=== PATIENT | female | born 1990 | race Caucasian/White ===

== ENCOUNTER 2016-06-10 08:36 | Emergency (ER) | payer OTHER ==
[2016-06-10 08:50] VITALS: O2SAT 100
[2016-06-10] MEDS ORDERED: Sodium Chloride 0.9% 1000 ML 1,000 ML IV STA ×2 (09:04→10:32)
[2016-06-10] MEDS ORDERED: Zofran 4 MG/2 ML VIAL IV ONE (09:04)
[2016-06-10] MEDS ORDERED: PROTONIX 40 MG IV IV ONE ×2 (09:04→09:10)
[2016-06-10] MEDS ORDERED: Zofran 4 MG/2 ML VIAL ONE (09:10)
[2016-06-10] MEDS ORDERED: Sodium Chloride 0.9% 1000 ML 1,000 ML ONE ×2 (09:10→10:34)
[2016-06-10 09:13] LABS: Collection Type CCMS
[2016-06-10 09:14] LABS: COMPLETE URINE MICROSCOPIC? YES; Ph 5.5 (5-6)
--- NOTE | 2016-06-10 09:14 | ERPHSYRPT ---
- History of Present Illness Time Seen by Provider: 06/10/16 09:00 Historian: patient Exam Limitations: clinical condition Patient Subjective Stated Complaint: pt states she had bariatric surgery in april and began having vomiting this morning. pt now c/o weakness and thinks she maybe dehydrated. pt states she also has had diarrhea. Triage Nursing Assessment: pt pale, warm, dry. pt ambulated into ER without difficulty. lips dry, mouth moist. pt afebrile. Physician History: PATIENT POST GASTRIC BYPASS SURGERY 2 MONTHS AGO COMPLAINS OF FREQUENT EMESIS X 4 EPISODES TODAY AND WATERY DIARRHEA AFTER TAKING A STOOL SOFTNER FOR CONSTIPATION. DENIES ABDOMINAL PAIN OR FEVER. HAS WEAKNESS UPON STANDING. Timing/Duration: today Activities at Onset: none Quality: other (DENIES PAIN DISCOMFORT) Severity of Pain-Max: none Severity of Pain-Current: none Modifying Factors: Improves With: vomiting, other (DIARRHEA) Previous symptoms: no prior history Allergies/Adverse Reactions: No Known Drug Allergies Allergy (Unverified 06/10/16 08:48) Home Medications: Calcium Carbonate/Vitamin D3 [Vitamin D-3 400 Units Tablet] 1 tab PO DAILY 06/10 [History] Calcium Citrate/Glut AC HCl [Calcium Citrate Tablet] 1 each PO DAILY 06/10/16 [ History] Sucralfate 1 gm [Carafate 1 GM] 1 g PO BID 06/10/16 [History] Hx Tetanus, Diphtheria Vaccination/Date Given: Yes (up to date) Hx Influenza Vaccination/Date Given: No Hx Pneumococcal Vaccination/Date Given: No Immunizations Up to Date: Yes - Review of Systems Constitutional: No Fever, No Chills Eyes: No Symptoms Ears, Nose, & Throat: No Symptoms Respiratory: No Symptoms, No Cough, No Dyspnea Cardiac: No Symptoms, No Chest Pain, No Edema, No Syncope Abdominal/Gastrointestinal: No Abdominal Pain, No Nausea, No Vomiting, No Diarrhea Genitourinary Symptoms: No Dysuria Musculoskeletal: No Back Pain, No Neck Pain Skin: No Rash Neurological: No Dizziness, No Focal Weakness, No Sensory Changes Psychological: No Symptoms Endocrine: No Symptoms All Other Systems: Reviewed and Negative - Past Medical History Pertinent Past Medical History: Yes Other Medical History: bariatric surgery - Past Surgical History Past Surgical History: Yes Other Surgical History: bariatric surgery Apr 2016 - Social History Smoking Status: Never smoker Exposure to second hand smoke: No Drug Use: none Patient Lives Alone: No - Female History Hx Last Menstrual Period: jan 2016-normal - Nursing Vital Signs Nursing Vital Signs: Initial Vital Signs Temperature 98.0 F Temperature Source Oral Pulse Rate 66 Respiratory Rate 18 Blood Pressure [Right Arm] 107/67 Pain Intensity 4 - Physical Exam General Appearance: no apparent distress, alert Eye Exam: PERRL/EOMI, eyes nml inspection Ears, Nose, Throat Exam: normal ENT inspection, pharynx normal, moist mucous membranes Neck Exam: normal inspection, non-tender, supple, full range of motion Respiratory Exam: normal breath sounds, lungs clear, No respiratory distress Cardiovascular Exam: regular rate/rhythm, normal heart sounds Gastrointestinal/Abdomen Exam: soft, normal bowel sounds, other (OBESE, NONTENDER), No tenderness, No mass Back Exam: normal inspection, normal range of motion, No CVA tenderness, No vertebral tenderness Extremity Exam: normal inspection, normal range of motion, pelvis stable Neurologic Exam: alert, oriented x 3, cooperative, normal mood/affect, nml cerebellar function, sensation nml, No motor deficits Skin Exam: normal color, warm, dry SpO2 Interpretation: normal SpO2: 100 Oxygen Delivery: Room Air - Radiology Exams Abdomen X-ray Interpretation: Negative (NO EVIDENCE OF BOWEL OBSTRUCTION OR FREE AIR) Ordered Tests: Active Orders 24 hr Category Date Time Status IV Insertion STAT Care 06/10/16 09:04 Active Orthostatic Vital Signs STAT Care 06/10/16 09:04 Active OBSTR/ACUTE ABDOMEN SERIES Stat Exams 06/10/16 09:04 Taken AMYLASE Stat Lab 06/10/16 09:00 Completed CBC W DIFF Stat Lab 06/10/16 09:09 Completed CMP Stat Lab 06/10/16 09:00 Completed HCG,QUALITATIVE URINE Stat Lab 06/10/16 09:00 Completed LIPASE Stat Lab 06/10/16 09:00 Completed MAGNESIUM Stat Lab 06/10/16 09:00 Completed UA W/ MICROSCOPIC Stat Lab 06/10/16 09:00 Completed Medication Summary Discontinued Medications Generic Name Dose Route Start Last Admin Trade Name Freq PRN Reason Stop Dose Admin Acetaminophen 650 mg 06/10/16 10:33 06/10/16 10:34 Tylenol 325 Mg PO 06/10/16 10:34 650 mg STAT STA Administration Acetaminophen Confirm 06/10/16 10:34 Tylenol 325 Mg Administered 06/10/16 10:35 Dose 650 mg .ROUTE .STK-MED ONE Sodium Chloride 1,000 mls @ 999 mls/hr 06/10/16 09:04 06/10/16 09:18 Sodium Chloride 0.9% 1000 Ml IV 06/10/16 10:04 999 mls/hr .Q1H1M STA Administration Sodium Chloride Confirm 06/10/16 09:10 Sodium Chloride 0.9% 1000 Ml Administered 06/10/16 09:11 Dose 1,000 mls @ ud .ROUTE .STK-MED ONE Sodium Chloride 1,000 mls @ 999 mls/hr 06/10/16 10:32 06/10/16 10:34 Sodium Chloride 0.9% 1000 Ml IV 06/10/16 11:32 999 mls/hr .Q1H1M STA Administration Sodium Chloride Confirm 06/10/16 10:34 Sodium Chloride 0.9% 1000 Ml Administered 06/10/16 10:35 Dose 1,000 mls @ ud .ROUTE .STK-MED ONE Ondansetron HCl 4 mg 06/10/16 09:04 06/10/16 09:18 Zofran 4 Mg/2 Ml Vial IV 06/10/16 09:05 4 mg STAT ONE Administration Ondansetron HCl Confirm 06/10/16 09:10 Zofran 4 Mg/2 Ml Vial Administered 06/10/16 09:11 Dose 4 mg .ROUTE .STK-MED ONE Pantoprazole Sodium 40 mg 06/10/16 09:04 06/10/16 09:18 Protonix 40 Mg Iv IV 06/10/16 09:05 40 mg STAT ONE Administration Pantoprazole Sodium Confirm 06/10/16 09:10 Protonix 40 Mg Iv Administered 06/10/16 09:11 Dose 40 mg IV .STK-MED ONE Lab/Rad Data: Laboratory Result Diagrams 06/10/16 09:09 06/10/16 09:00 Laboratory Results 06/10/16 06/10/16 06/10/16 Range/Units 09:09 09:00 09:00 WBC 5.3 (4.0-10.5) K/mm3 RBC 5.21 (4.1-5.4) M/mm3 Hgb 12.5 (12.0-16.0) gm/dl Hct 40.7 (35-47) % MCV 78.1 (78-100) fl MCH 24.0 L (26-32) pg MCHC 30.7 L (32-36) g/dl RDW 16.6 H (11.5-14.0) % Plt Count 184 (150-450) K/mm3 MPV 11.1 H (6-9.5) fl Gran % 61.2 (36.0-66.0) % Lymphocytes % 29.6 (24.0-44.0) % Monocytes % 7.9 (0.0-12.0) % Eosinophils % 1.1 (0.00-5.0) % Basophils % 0.2 (0.0-0.4) % Basophils # 0.01 (0-0.4) Sodium (136-145) mEq/L Potassium (3.5-5.1) mEq/L Chloride (98-107) mEq/L Carbon Dioxide (21-32) mEq/L Anion Gap (5-15) MEQ/L BUN (9-20) mg/dL Creatinine (0.55-1.30) mg/dl Estimated GFR ML/MIN Glucose (70-110) MG/DL Calcium (8.5-10.1) mg/dL Magnesium 2.2 (1.8-2.4) mg/dL Total Bilirubin (0.2-1.0) mg/dL AST (15-37) U/L ALT (12-78) U/L Alkaline Phosphatase (46-116) U/L Serum Total Protein (6.4-8.2) gm/dL Albumin (3.4-5.0) g/dL Amylase (25-115) U/L Lipase (73-393) U/L Ur Collection Type Urine Color (YELLOW) Urine Appearance (CLEAR) Urine pH (5-6) Ur Specific [place] (1.005-1.025) Urine Protein (Negative) Urine Glucose (UA) (NEGATIVE) mg/dL Urine Ketones (NEGATIVE) Urine Nitrite (NEGATIVE) Urine Bilirubin (NEGATIVE) Urine Urobilinogen (0-1) mg/dL Urine WBC (Auto) (NEGATIVE) Urine RBC (Auto) (0-5) Danilo/ul Ur Epithelial Cells (FEW) /HPF Urine Bacteria (NEGATIVE) /HPF Urine Mucus (NEGATIVE) /HPF Urine HCG, Qual NEGATIVE (Negative) Specimen Received 06/10/16 06/10/16 Range/Units 09:00 09:00 WBC (4.0-10.5) K/mm3 RBC (4.1-5.4) M/mm3 Hgb (12.0-16.0) gm/dl Hct (35-47) % MCV (78-100) fl MCH (26-32) pg MCHC (32-36) g/dl RDW (11.5-14.0) % Plt Count (150-450) K/mm3 MPV (6-9.5) fl Gran % (36.0-66.0) % Lymphocytes % (24.0-44.0) % Monocytes % (0.0-12.0) % Eosinophils % (0.00-5.0) % Basophils % (0.0-0.4) % Basophils # (0-0.4) Sodium 127 L (136-145) mEq/L Potassium 4.2 (3.5-5.1) mEq/L Chloride 104 (98-107) mEq/L Carbon Dioxide 20.8 L (21-32) mEq/L Anion Gap 6.8 (5-15) MEQ/L BUN 18 (9-20) mg/dL Creatinine 0.74 (0.55-1.30) mg/dl Estimated GFR > 60 ML/MIN Glucose 116 H (70-110) MG/DL Calcium 9.2 (8.5-10.1) mg/dL Magnesium (1.8-2.4) mg/dL Total Bilirubin 0.9 (0.2-1.0) mg/dL AST 26 (15-37) U/L ALT 40 (12-78) U/L Alkaline Phosphatase 71 (46-116) U/L Serum Total Protein 7.4 (6.4-8.2) gm/dL Albumin 3.8 (3.4-5.0) g/dL Amylase 49 (25-115) U/L Lipase 155 (73-393) U/L Ur Collection Type CCMS Urine Color YELLOW (YELLOW) Urine Appearance CLOUDY (CLEAR) Urine pH 5.5 (5-6) Ur Specific [place] >=1.030 (1.005-1.025) Urine Protein 30 (Negative) Urine Glucose (UA) NEGATIVE (NEGATIVE) mg/dL Urine Ketones LARGE-80 (NEGATIVE) Urine Nitrite NEGATIVE (NEGATIVE) Urine Bilirubin SMALL (NEGATIVE) Urine Urobilinogen 0.2 (0-1) mg/dL Urine WBC (Auto) NEGATIVE (NEGATIVE) Urine RBC (Auto) NEGATIVE (0-5) Danilo/ul Ur Epithelial Cells MODERATE (FEW) /HPF Urine Bacteria FEW (NEGATIVE) /HPF Urine Mucus MANY (NEGATIVE) /HPF Urine HCG, Qual (Negative) Specimen Received 0900 06/10/16 - Progress Progress: improved Progress Note: 06/10/16 09:24 PATIENT GIVEN IV FLUIDS NORMAL SALINE 1LITER/HR X 2, ZOFRAN 4MG, PROTONIX 40MG IV 06/10/16 11:42 PATIENT IS ABLE TO TOLERATE ORAL LIQUIDS WELL WITHOUT NAUSEA Counseled pt/family regarding: lab results, diagnosis, need for follow-up, rad results - Departure Time of Disposition: 11:50 Departure Disposition: Home Clinical Impression: ACUTE EMESIS AND DIARRHEA Condition: Stable Critical Care Time: No Additional Instructions: BEGIN CLEAR LIQUID DIET FOR 24 HOURS THEN ADVANCE DIET TOLERATED. ZOFRAN 4MG EVERY 4 HOURS FOR NAUSEA NEEDED. CONSULT YOUR FAMILY PHYSICIAN FOR FOLLOWUP. RETURN TO EMERGENCY FOR RECURRENT EMESIS. Prescriptions: Ondansetron [Zofran Odt] 4 mg PO Q4H PRN #8 tab.[email or web address]
[2016-06-10 09:16] LABS: BASOPHIL % 0.2 % (0.0-0.4); Eosinophil % 1.1 % (0.00-5.0); Granulocytes % 61.2 % (36.0-66.0); Lymphocytes % 29.6 % (24.0-44.0); Mean Cell Volume 78.1 fl (78-100); Mean Platelet Volume 11.1 fl (6-9.5); Monocytes % 7.9 % (0.0-12.0); Platelet Count 184 K/mm3 (150-450); Red Blood Count 5.21 M/mm3 (4.1-5.4); Red Cell Distribution Width 16.6 % (11.5-14.0); White Blood Count 5.3 K/mm3 (4.0-10.5)
[2016-06-10 09:28] LABS: ALBUMIN 3.8 g/dL (3.4-5.0); ALKALINE PHOSPHATASE 71 U/L (46-116); ANION GAP 6.8 MEQ/L (5-15); BILIRUBIN,TOTAL 0.9 mg/dL (0.2-1.0); BLOOD UREA NITROGEN 18 mg/dL (9-20); CHLORIDE 104 mEq/L (98-107); Carbon Dioxide 20.8 mEq/L (21-32); Glucose 116 MG/DL (70-110); LIPASE 155 U/L (73-393); Potassium 4.2 mEq/L (3.5-5.1); SGOT/AST 26 U/L (15-37); SGPT/ALT 40 U/L (12-78); SODIUM 127 mEq/L (136-145); Total Protein 7.4 gm/dL (6.4-8.2)
[2016-06-10 09:33] LABS: Bacteria FEW /HPF (NEGATIVE); Epithelial Cells MODERATE /HPF (FEW); Mucus MANY /HPF (NEGATIVE)
[2016-06-10] MEDS ORDERED: TYLENOL 325 MG PO STA (10:33)
[2016-06-10] MEDS ORDERED: TYLENOL 325 MG ONE (10:34)
[2016-06-10 11:44] VITALS: BP 106/73; PULSE 71
--- NOTE | 2016-06-10 12:15 | XRAY ---
Indication: Vomiting and dehydration. Post gastric bypass surgery April 2016. Comparison: None 2 views of the abdomen nonacute and nonobstructed with suture material from gastric bypass surgery. Solid organs and osseous structures unremarkable. Single frontal chest demonstrates normal heart, lungs, and bony thorax. Impression: Nonacute nonobstructed abdomen. Normal 1 view chest.
== END 2016-06-10 11:58 | disposition home or self-care (01) ==
LOC: ED 08:36
DX: R11.10 Vomiting, unspecified (principal); R19.7 Diarrhea, unspecified; R11.2 Nausea with vomiting, unspecified; Z98.84 Bariatric surgery status
CPT/HCPCS: 36000; 36415; 74022; 80053; 81000; 82150; 83690; 83735; 84703; 85025; 96360; 96361; 96374; 96375; 99284; J2405; A9270-GY

== ENCOUNTER 2020-01-11 16:11 | Emergency (ER) | payer OTHER ==
[2020-01-11] MEDS ORDERED: Zofran 4 MG/2 ML VIAL IV ONE ×2 (16:58→18:49)
[2020-01-11] MEDS ORDERED: Sodium Chloride 0.9% 1000 ML 1,000 ML IV STA (16:58)
[2020-01-11] MEDS ORDERED: Hydromorphone 1 mg/ml Injection IV ONE (16:58)
[2020-01-11] MEDS ORDERED: Zofran 4 MG/2 ML VIAL ONE ×2 (17:00→18:49)
[2020-01-11] MEDS ORDERED: Hydromorphone 1 mg/ml Injection ONE (17:00)
[2020-01-11] MEDS ORDERED: Sodium Chloride 0.9% 1000 ML 1,000 ML ONE (17:00)
--- NOTE | 2020-01-11 17:19 | ERPHSYRPT ---
- History of Present Illness Source: patient Exam Limitations: no limitations Patient Subjective Stated Complaint: Headache Triage Nursing Assessment: Patient ambulated back to ED and transferred self to bed. Patient A+O X3. Patient's skin pink, warm and dry. Patient complains of headache after seeing her chiropractor at 1130. Patient complains of right sided head/neck pain 5/10 constant, sharp pain 5/10. Pupils PERRL. Patient complains of dizziness, N/V. Physician History: 29 yo wf w occipital LINDSEY/posterior cervical pain after getting a chiropractic manipulation today. Pain is 5/10 and throbbing. Nothing makes the pain better or worse. She has had nausea wo vomiting/focal weakness/fever. She has a h/o MGHA w different presentation. Timing/Duration: other (4.5 hr) Quality: other (throbbing) Head Pain Location: occipital Severity of Pain-Max: moderate Severity of Pain-Current: moderate Recent Head Trauma: occasional headaches Modifying Factors: Improves With: movement. Worsens With: cold therapy, exposure to light, immobilization, medication, rest, noise, position Associated Symptoms: neck pain, stiff neck, No confusion, No dizziness, No fatigue, No facial pain, No fever/chills, No flushing, No light-headedness, No loss of consciousness, No nasal congestion, No nasal drainage, No numbness in legs/feet, No rash, No sweating, No scotoma, No seizures, No sinus infection, No sensitive to light, No speech problems, No trouble walking, No vision changes, No visual disturbance, No weakness Previous symptoms: different symptoms Allergies/Adverse Reactions: No Known Drug Allergies Allergy (Verified 01/11/20 16:21) Home Medications: Calcium Carbonate/Vitamin D3 [Vitamin D-3 400 Units Tablet] 1 tab PO DAILY 06/10/16 [History] Calcium Citrate/Glut AC HCl [Calcium Citrate Tablet] 1 each PO DAILY 06/10/16 [History] Sucralfate 1 gm [Carafate 1 GM] 2 g PO BID 06/10/16 [History] Hx Tetanus, Diphtheria Vaccination/Date Given: Yes (up to date) Hx Influenza Vaccination/Date Given: No Hx Pneumococcal Vaccination/Date Given: No Immunizations Up to Date: Yes Travel Risk - International Travel Have you traveled outside of the country in past 3 weeks: No - Coronavirus Screening Are you exhibiting any of the following symptoms?: No Close contact with a COVID-19 positive Pt in past 14-21 Days: No - Review of Systems Constitutional: No Symptoms Eyes: No Symptoms Ears, Nose, & Throat: No Symptoms Respiratory: No Symptoms Cardiac: No Symptoms Abdominal/Gastrointestinal: No Symptoms Genitourinary Symptoms: No Symptoms Musculoskeletal: No Symptoms Skin: No Symptoms Neurological: Headache Psychological: No Symptoms Endocrine: No Symptoms Hematologic/Lymphatic: No Symptoms Immunological/Allergic: No Symptoms - Past Medical History Pertinent Past Medical History: Yes Neurological History: No Pertinent History ENT History: No Pertinent History Cardiac History: No Pertinent History Respiratory History: No Pertinent History Endocrine Medical History: No Pertinent History Musculoskeletal History: No Pertinent History GI Medical History: No Pertinent History History: No Pertinent History Psycho-Social History: No Pertinent History Female Reproductive Disorders: No Pertinent History Other Medical History: bariatric surgery 2015 - Past Surgical History Past Surgical History: Yes Female Surgical History: Hysterectomy, Section, Tubal Ligation Other Surgical History: bariatric surgery Apr 2015. hysterectomy 2016 - Social History Smoking Status: Never smoker Exposure to second hand smoke: No Drug Use: none Patient Lives Alone: No Significant Family History: no pertinent family hx - Female History Hx Last Menstrual Period: hysterectomy 2017 Hx Now: No - Nursing Vital Signs Nursing Vital Signs: Initial Vital Signs Temperature 98.4 F 01/11/20 16:24 Pulse Rate 82 01/11/20 16:24 Respiratory Rate 18 01/11/20 16:24 Blood Pressure 141/102 01/11/20 16:24 O2 Sat by Pulse Oximetry 99 01/11/20 16:24 Pain Scale Pain Intensity 0 - Physical Exam General Appearance: no apparent distress Eye Exam: PERRL/EOMI, eyes nml inspection Ears, Nose, Throat Exam: normal ENT inspection, TMs normal, pharynx normal, moist mucous membranes Neck Exam: normal inspection (Mild posterior TTP) Respiratory Exam: normal breath sounds, lungs clear, airway intact Cardiovascular Exam: regular rate/rhythm, normal heart sounds, normal peripheral pulses Back Exam: normal inspection, normal range of motion, No CVA tenderness Extremity Exam: normal inspection, normal range of motion Mental Status Exam: alert, oriented x 3, cooperative head sawyer Exam: normal hearing, normal speech, PERRL, No abnormal gag reflex Motor/Sensory Exam: no motor deficit, no sensory deficit, no pronator drift, negative Babinski's sign DTR Exam: bicep (R): 2+, bicep (L): 2+, knee (R): 2+, knee (L): 2+ Skin Exam: normal color, warm, dry, No rash Lymphatic Exam: No adenopathy SpO2 Interpretation: normal SpO2: 99 O2 Delivery: Room Air - CT Exams Head CT Interpretation: Discussed w/radiologist (CT head w/wo neg per rad) Cervical Spine CT Interpretation: Discussed w/radiologist (CT C-spine w/wo contrast neg per Rad) Ordered Tests: Active Orders 24 hr Category Date Time Status IV Insertion STAT Care 01/11/20 16:42 Completed CERVICAL SPINE W/WO CONTRAST [CT] Stat Exams 01/11/20 16:39 Taken HEAD W/WO CONTRAST [CT] Stat Exams 01/11/20 16:39 Taken Medication Summary Discontinued Medications Generic Name Dose Route Start Last Admin Trade Name Freq PRN Reason Stop Dose Admin Diazepam 5 mg 01/11/20 19:36 01/11/20 19:48 Valium 5 Mg PO 01/11/20 19:37 5 mg STAT ONE Administration Diazepam Confirm 01/11/20 19:47 Valium 5 Mg Administered 01/11/20 19:48 Dose 5 mg .ROUTE .STK-MED ONE Hydromorphone HCl 1 mg 01/11/20 16:58 01/11/20 17:03 Hydromorphone 1 Mg/Ml Injection IV 01/11/20 16:59 1 mg STAT ONE Administration Hydromorphone HCl Confirm 01/11/20 17:00 Hydromorphone 1 Mg/Ml Injection Administered 01/11/20 17:01 Dose 1 mg .ROUTE .STK-MED ONE Sodium Chloride 1,000 mls @ 999 mls/hr 01/11/20 16:58 01/11/20 18:56 Sodium Chloride 0.9% 1000 Ml IV 01/11/20 17:58 Infused .Q1H1M STA Infusion Sodium Chloride Confirm 01/11/20 17:00 Sodium Chloride 0.9% 1000 Ml Administered 01/11/20 17:01 Dose 1,000 mls @ ud .ROUTE .STK-MED ONE Ondansetron HCl 4 mg 01/11/20 16:58 01/11/20 17:03 Zofran 4 Mg/2 Ml Vial IV 01/11/20 16:59 4 mg STAT ONE Administration Ondansetron HCl Confirm 01/11/20 17:00 Zofran 4 Mg/2 Ml Vial Administered 01/11/20 17:01 Dose 4 mg .ROUTE .STK-MED ONE Ondansetron HCl 4 mg 01/11/20 18:49 01/11/20 18:53 Zofran 4 Mg/2 Ml Vial IV 01/11/20 18:50 4 mg STAT ONE Administration Ondansetron HCl Confirm 01/11/20 18:49 Zofran 4 Mg/2 Ml Vial Administered 01/11/20 18:50 Dose 4 mg .ROUTE .STK-MED ONE Prochlorperazine Edisylate 10 mg 01/11/20 19:18 01/11/20 19:22 Compazine 10 Mg/2 Ml IV 01/11/20 19:19 10 mg STAT ONE Administration Prochlorperazine Edisylate Confirm 01/11/20 19:19 Compazine 10 Mg/2 Ml Administered 01/11/20 19:20 Dose 10 mg .ROUTE .STK-MED ONE - Progress Progress: improved Progress Note: 01/11/20 20:32 Pain improved w 1mg IV Dilaudid/4mg IV Zofran/1L NS bolus Additional 4mg dose of zofran given wo improvement in nausea 10mg IV compazine given w improvement in nausea Dizziness improved w 5mg po Valium 01/11/20 20:34 Counseled pt/family regarding: need for follow-up, rad results - Departure Departure Disposition: Home Clinical Impression: Migraine, Vertigo Condition: Stable Critical Care Time: No Referrals: YUDELKA GASPAR MD [Primary Care Provider] - Instructions: Vertigo (a Type of Dizziness), Vertigo (a Type of Dizziness) (DC), Headache, Adult (DC) Additional Instructions: Follow up with your family MD in 1-2 days Return to ER for increasing pain/Dizziness/focal weakness/Temperature greater than 100.5 Prescriptions: Meclizine HCl 25 mg [Antivert 25 mg] 25 mg PO Q6H PRN PRN #15 tablet PRN Reason: Dizziness
[2020-01-11] MEDS ORDERED: Compazine 10 MG/2 ML IV ONE (19:18)
[2020-01-11] MEDS ORDERED: Compazine 10 MG/2 ML ONE (19:19)
[2020-01-11] MEDS ORDERED: Valium 5 MG PO ONE (19:36)
[2020-01-11] MEDS ORDERED: Valium 5 MG ONE (19:47)
[2020-01-11 20:34] VITALS: BP 126/82; PULSE 66
[2020-01-11 20:37] VITALS: O2SAT 99
--- NOTE | 2020-01-12 08:47 | XRAY ---
Indication: Right-sided pain, migraines, and vertigo. Recent chiropractor visit. Multiple contiguous axial images obtained through the head prior to and following 100 cc Isovue 370 contrast. Comparison: None Ventriculosulcal pattern appears symmetric. No acute intracranial hemorrhage, abnormal extra-axial fluid collection, or mass effect. Bruce-white matter interfaces preserved. Postcontrast images are negative for abnormal enhancing intra or extra-axial mass. Fourth ventricle is midline without hydrocephalus. Bony calvarium intact. Visualized paranasal sinuses and mastoid air cells are clear. Impression: Normal CT head with and without contrast exam.
--- NOTE | 2020-01-12 08:51 | XRAY ---
Indication: Right-sided pain, migraines, and vertigo. Recent chiropractor visit. Multiple contiguous axial images obtained through the neck prior to and following 100 cc Isovue 370 contrast. Comparison: None Parotid and submandibular glands are bilaterally symmetric. A few centimeter/subcentimeter cervical and submandibular lymph nodes bilaterally, none pathologically enlarged. Thyroid gland enhances homogeneously. Supra and infraglottic airway are widely patent. Normal epiglottis. Major arteries and veins are normal in course and caliber without critical stenosis or AV malformation. Cervical spine intact with normal alignment. No acute fracture or suspicious bony lesions. Lung apices are clear. CT head with and without contrast reported separately. Impression: Normal CT neck with and without contrast exam.
== END 2020-01-11 20:46 | disposition home or self-care (01) ==
LOC: ED 16:11
DX: G43.909 Migraine, unspecified, not intractable, without status migrainosus (principal); R42 Dizziness and giddiness
CPT/HCPCS: 36000; 70470; 72127; 96360; 96374; 96375; 96376; 99285; J1170; J2405; A9270-GY

== ENCOUNTER 2022-06-29 05:39 | Day surgery (SDC) | payer OTHER ==
[2022-06-29] MEDS ORDERED: Lactated Ringers 1,000 ML IV SCH (06:30)
[2022-06-29] MEDS ORDERED: DIPRIVAN 200 MG/20 ML IV ONE ×2 (07:15→07:33)
[2022-06-29] MEDS ORDERED: Versed 2 MG/2 ML Injection ONE (07:15)
[2022-06-29] MEDS ORDERED: Xylocaine-Mpf 2% 5 Ml Vial ONE (07:17)
[2022-06-29 08:03] VITALS: O2SAT 100
[2022-06-29 08:27] VITALS: BP 111/84; PULSE 70
--- NOTE | 2022-06-29 09:27 | OP ---
SURGERY DATE: 06/29/2022 SURGERY TIME: 716 PREOPERATIVE DIAGNOSIS: 1. BLACK STOOLS. POSTOPERATIVE DIAGNOSIS: 1. APPARENT RESOLVED BLEEDING FROM THE STOMACH WITH ADHERENT BLOOD CLOTS IN TWO DIFFERENT AREAS, BUT NO ACTIVE BLEEDING STATUS POST GASTRIC BYPASS SURGERY. PROCEDURE: 1. Esophagogastroduodenoscopy. SURGEON: Dr. Lam. ANESTHESIA: MAC. Medication given by the Anesthesia Department. BRIEF HISTORY: The patient is a 32 y/o WF who presents now for endoscopic evaluation. She had apparently had some black stools that were concerning for bleeding issues going on. The patient was felt to need to have endoscopic evaluation. She reported to us that she had previously had endoscopy approximately 8 years ago and had previously had gastric bypass surgery. The patient takes no anti-inflammatory medicines presently. She was felt to need to have endoscopic evaluation. She was appraised of the risks of the procedure including the risk of perforation, phlebitis, untoward reaction to medication, bleeding, and missed lesions. The patient verbalized her understanding and desired to have the procedure performed. DESCRIPTION OF PROCEDURE: The patient was given the medications by the Anesthesia Department. She had continuous pulse oximetry, ECG monitoring, and intermittent BP monitoring during the examination. She was placed in the left lateral decubitus position. A bite block was placed and the flexible Olympus gastroscope was used to intubate the oropharynx. A view of the larynx was obtained and was normal. The scope was easily introduced in the esophagus which appeared to be normal throughout its length. The stomach was entered where there was apparent previous history of gastric bypass. There were 2 areas of adherent blood clots and no active bleeding at this time. No active ulcers otherwise were seen. These appeared to have been possibly small arterial in nature, but again, at this time, they appeared to be in the healing stage with no active bleeding. The scope was then removed from the patient who tolerated the procedure well and was sent back to outpatient recovery in good condition.
== END 2022-06-29 08:35 | disposition home or self-care (01) ==
LOC: SDC 05:39
PROVIDERS: ATTEND Family Medicine
DX: R19.5 Other fecal abnormalities (principal); Z98.84 Bariatric surgery status
CPT/HCPCS: J2250; J2704